=== PATIENT | female | born 1970 | race Caucasian/White ===

== ENCOUNTER → 2018-07-10 | Outpatient (CLI) | payer BC ==
[2018-07-10 14:44] LABS: EOS # 0.1 (0.04-0.40); EOS % 0.9 % (1.0-5.0); HEMATOCRIT 35.6 % (37.0-47.0); HEMOGLOBIN 10.4 g/dL (12.5-16.0); LYMPH# 1.6 (1.50-4.00); MEAN CELL VOLUME 80 fl (78-100); MEAN CORPUSCULAR HEMOGLOBIN 23 pg (27-31); MEAN CORPUSCULAR HGB CONC 29 g/dL (33-37); MEAN PLATELET VOLUME 9.1 fl (7.4-10.4); MONO # 0.4 (0.20-0.80); NEU # 4.4 (1.40-6.50); PLATELET COUNT 497 K/mm3 (130-400); RED BLOOD COUNT 4.44 M/mm3 (4.10-5.30); RED CELL DISTRIBUTION WIDTH 15.9 % (11.5-14.5); WHITE BLOOD COUNT 6.5 K/mm3 (4.8-10.8)
[2018-07-10 14:52] LABS: ALBUMIN 3.9 g/dL (3.5-5.0); POTASSIUM 3.8 mmol/L (3.6-5.0); TOTAL BILIRUBIN 0.2 mg/dL (0.2-1.3); TOTAL PROTEIN 7.6 g/dL (6.3-8.2)
== END ==
LOC: LAB 14:24
DX: C71.9 Malignant neoplasm of brain, unspecified (principal)

== ENCOUNTER → 2018-07-22 | Outpatient (CLI) | payer BC ==
[2018-07-22 18:08] LABS: EOS # 0.2 (0.04-0.40); EOS % 2.5 % (1.0-5.0); HEMATOCRIT 34.7 % (37.0-47.0); HEMOGLOBIN 10.3 g/dL (12.5-16.0); LYMPH# 1.6 (1.50-4.00); MEAN CELL VOLUME 80 fl (78-100); MEAN CORPUSCULAR HGB CONC 30 g/dL (33-37); MEAN PLATELET VOLUME 9.8 fl (7.4-10.4); MONO # 0.6 (0.20-0.80); NEU # 5.3 (1.40-6.50); RED BLOOD COUNT 4.34 M/mm3 (4.10-5.30); RED CELL DISTRIBUTION WIDTH 15.9 % (11.5-14.5); WHITE BLOOD COUNT 7.7 K/mm3 (4.8-10.8)
[2018-07-22 18:09] LABS: MEAN CORPUSCULAR HEMOGLOBIN 24 pg (27-31); PLATELET COUNT 516 K/mm3 (130-400)
[2018-07-22 18:15] LABS: ALBUMIN 3.9 g/dL (3.5-5.0); CALCIUM 9.3 mg/dL (8.4-10.2); TOTAL BILIRUBIN 0.3 mg/dL (0.2-1.3); TOTAL PROTEIN 7.6 g/dL (6.3-8.2)
== END ==
LOC: LAB 14:47
PROVIDERS: Internal Medicine
DX: C71.9 Malignant neoplasm of brain, unspecified (principal)

== ENCOUNTER → 2018-08-05 | Outpatient (CLI) | payer BC ==
[2018-08-05 13:11] LABS: EOS # 0.2 (0.04-0.40); EOS % 3.3 % (1.0-5.0); HEMATOCRIT 37.5 % (37.0-47.0); LYMPH# 1.4 (1.50-4.00); MEAN CELL VOLUME 78 fl (78-100); MONO # 0.4 (0.20-0.80); NEU # 3.2 (1.40-6.50); PLATELET COUNT 455 K/mm3 (130-400); RED BLOOD COUNT 4.79 M/mm3 (4.10-5.30); WHITE BLOOD COUNT 5.2 K/mm3 (4.8-10.8)
[2018-08-05 13:13] LABS: MEAN CORPUSCULAR HEMOGLOBIN 23 pg (27-31); MEAN CORPUSCULAR HGB CONC 29 g/dL (33-37)
[2018-08-05 13:26] LABS: ALBUMIN 4.1 g/dL (3.5-5.0); CALCIUM 8.8 mg/dL (8.4-10.2); POTASSIUM 4.1 mmol/L (3.6-5.0); TOTAL BILIRUBIN 0.3 mg/dL (0.2-1.3); TOTAL PROTEIN 7.9 g/dL (6.3-8.2)
== END ==
LOC: LAB 12:55
PROVIDERS: Internal Medicine
DX: C71.9 Malignant neoplasm of brain, unspecified (principal)

== ENCOUNTER → 2018-08-16 | Outpatient (CLI) | payer BC ==
[2018-08-16 17:15] LABS: ALBUMIN 3.9 g/dL (3.5-5.0); CALCIUM 9.2 mg/dL (8.4-10.2); TOTAL BILIRUBIN 0.3 mg/dL (0.2-1.3); TOTAL PROTEIN 7.3 g/dL (6.3-8.2)
[2018-08-16 17:43] LABS: EOS # 0.2 (0.04-0.40); EOS % 2.7 % (1.0-5.0); HEMATOCRIT 38.7 % (37.0-47.0); HEMOGLOBIN 11.4 g/dL (12.5-16.0); LYMPH# 1.2 (1.50-4.00); MEAN CELL VOLUME 78 fl (78-100); MEAN CORPUSCULAR HGB CONC 30 g/dL (33-37); MEAN PLATELET VOLUME 10.5 fl (7.4-10.4); MONO # 0.4 (0.20-0.80); NEU # 4.2 (1.40-6.50); PLATELET COUNT 374 K/mm3 (130-400); RED BLOOD COUNT 4.97 M/mm3 (4.10-5.30); RED CELL DISTRIBUTION WIDTH 16.5 % (11.5-14.5)
[2018-08-16 18:09] LABS: MEAN CORPUSCULAR HEMOGLOBIN 23 pg (27-31)
== END ==
LOC: LAB 13:20
PROVIDERS: Internal Medicine
DX: C71.9 Malignant neoplasm of brain, unspecified (principal)

== ENCOUNTER 2018-08-17 14:30 | Outpatient (RCR) | payer BC | END 2018-08-17 15:00 | LOC: SPEECH | DX: C71.9 Malignant neoplasm of brain, unspecified (principal) ==

== ENCOUNTER → 2018-08-30 | Outpatient (CLI) | payer BC ==
[2018-08-30 20:11] LABS: URINE COLOR YELLOW
[2018-08-30 20:12] LABS: URINE APPEARANCE HAZY; URINE BILIRUBIN NEGATIVE (NEGATIVE); URINE BLOOD TRACE (NEGATIVE); URINE GLUCOSE NEGATIVE (NEGATIVE); URINE KETONE NEGATIVE (NEGATIVE); URINE LEUKOCYTE ESTERASE NEGATIVE (NEGATIVE); URINE NITRATE NEGATIVE (NEGATIVE); URINE PROTEIN(semi-quant) TRACE mg/dL (NEGATIVE); URINE UROBILINOGEN NORMAL (NORMAL)
== END ==
LOC: LAB 17:16
PROVIDERS: Internal Medicine
DX: N30.00 Acute cystitis without hematuria (principal)

== ENCOUNTER → 2018-09-14 | Outpatient (CLI) | payer BC ==
[2018-09-14 12:08] LABS: URINE APPEARANCE HAZY; URINE COLOR YELLOW
[2018-09-14 12:09] LABS: PH-URINE 6.5 (5.0 - 8.0); URINE BILIRUBIN NEGATIVE (NEGATIVE); URINE BLOOD 50 ery/uL (NEGATIVE); URINE GLUCOSE NEGATIVE (NEGATIVE); URINE KETONE 1+ (NEGATIVE); URINE LEUKOCYTE ESTERASE TRACE (NEGATIVE); URINE NITRATE NEGATIVE (NEGATIVE); URINE PROTEIN(semi-quant) NEGATIVE (NEGATIVE); URINE UROBILINOGEN NORMAL (NORMAL)
[2018-09-14 12:10] LABS: URINE MUCUS PRESENT (NOT PRESENT)
== END ==
LOC: LAB 10:05
PROVIDERS: Internal Medicine
DX: D64.9 Anemia, unspecified (principal); N30.00 Acute cystitis without hematuria

== ENCOUNTER → 2018-09-15 | Outpatient (CLI) | payer BC ==
[2018-09-15 13:10] LABS: URINE COLOR YELLOW
[2018-09-15 13:11] LABS: PH-URINE 6.5 (5.0 - 8.0); URINE APPEARANCE HAZY; URINE BILIRUBIN NEGATIVE (NEGATIVE); URINE BLOOD TRACE (NEGATIVE); URINE GLUCOSE NEGATIVE (NEGATIVE); URINE KETONE NEGATIVE (NEGATIVE); URINE LEUKOCYTE ESTERASE TRACE (NEGATIVE); URINE NITRATE NEGATIVE (NEGATIVE); URINE PROTEIN(semi-quant) TRACE mg/dL (NEGATIVE); URINE UROBILINOGEN NORMAL (NORMAL)
== END ==
LOC: LAB 09:45
PROVIDERS: Internal Medicine
DX: D64.9 Anemia, unspecified (principal); N30.00 Acute cystitis without hematuria

== ENCOUNTER → 2018-09-17 | Outpatient (CLI) | payer BC ==
[2018-09-17 08:53] LABS: EOS # 0.1 (0.04-0.40); EOS % 1.9 % (1.0-5.0); HEMATOCRIT 37.1 % (37.0-47.0); HEMOGLOBIN 10.8 g/dL (12.5-16.0); LYMPH# 1.1 (1.50-4.00); MEAN CELL VOLUME 79 fl (78-100); MEAN PLATELET VOLUME 9.1 fl (7.4-10.4); MONO # 0.4 (0.20-0.80); NEU # 4.1 (1.40-6.50); PLATELET COUNT 378 K/mm3 (130-400); RED CELL DISTRIBUTION WIDTH 16.9 % (11.5-14.5); WHITE BLOOD COUNT 5.7 K/mm3 (4.8-10.8)
[2018-09-17 09:11] LABS: ALBUMIN 3.8 g/dL (3.5-5.0); CALCIUM 9.2 mg/dL (8.4-10.2); TOTAL BILIRUBIN 0.4 mg/dL (0.2-1.3); TOTAL PROTEIN 7.6 g/dL (6.3-8.2)
[2018-09-17 09:17] LABS: MEAN CORPUSCULAR HEMOGLOBIN 23 pg (27-31); MEAN CORPUSCULAR HGB CONC 29 g/dL (33-37)
== END ==
LOC: LAB 08:27
PROVIDERS: Internal Medicine
DX: C71.9 Malignant neoplasm of brain, unspecified (principal)

== ENCOUNTER → 2018-09-29 | Outpatient (CLI) | payer BC ==
[2018-09-29 17:13] LABS: EOS # 0.1 (0.04-0.40); HEMATOCRIT 38.1 % (37.0-47.0); HEMOGLOBIN 11.1 g/dL (12.5-16.0); LYMPH# 1.1 (1.50-4.00); MEAN CELL VOLUME 79 fl (78-100); MEAN PLATELET VOLUME 8.9 fl (7.4-10.4); MONO # 0.4 (0.20-0.80); NEU # 4.5 (1.40-6.50); PLATELET COUNT 422 K/mm3 (130-400); RED BLOOD COUNT 4.84 M/mm3 (4.10-5.30); WHITE BLOOD COUNT 6.1 K/mm3 (4.8-10.8)
[2018-09-29 17:20] LABS: MEAN CORPUSCULAR HEMOGLOBIN 23 pg (27-31); MEAN CORPUSCULAR HGB CONC 29 g/dL (33-37)
[2018-09-29 17:26] LABS: CALCIUM 9.3 mg/dL (8.4-10.2); POTASSIUM 3.9 mmol/L (3.6-5.0); TOTAL BILIRUBIN 0.2 mg/dL (0.2-1.3); TOTAL PROTEIN 8.1 g/dL (6.3-8.2)
== END ==
LOC: LAB 16:54
PROVIDERS: Internal Medicine
DX: C71.9 Malignant neoplasm of brain, unspecified (principal)

== ENCOUNTER → 2018-10-13 | Outpatient (CLI) | payer BC ==
[2018-10-13 10:34] LABS: EOS # 0.1 (0.04-0.40); EOS % 2.2 % (1.0-5.0); HEMATOCRIT 38.6 % (37.0-47.0); HEMOGLOBIN 11.3 g/dL (12.5-16.0); LYMPH# 0.8 (1.50-4.00); MEAN CELL VOLUME 78 fl (78-100); MEAN CORPUSCULAR HEMOGLOBIN 23 pg (27-31); MEAN CORPUSCULAR HGB CONC 29 g/dL (33-37); MONO # 0.3 (0.20-0.80); NEU # 3.9 (1.40-6.50); PLATELET COUNT 432 K/mm3 (130-400); RED BLOOD COUNT 4.96 M/mm3 (4.10-5.30); RED CELL DISTRIBUTION WIDTH 17.6 % (11.5-14.5); WHITE BLOOD COUNT 5.1 K/mm3 (4.8-10.8)
[2018-10-13 10:44] LABS: CALCIUM 8.8 mg/dL (8.4-10.2); POTASSIUM 3.8 mmol/L (3.6-5.0); TOTAL BILIRUBIN 0.4 mg/dL (0.2-1.3); TOTAL PROTEIN 7.9 g/dL (6.3-8.2)
== END ==
LOC: LAB 10:15
PROVIDERS: Internal Medicine
DX: C71.9 Malignant neoplasm of brain, unspecified (principal)

== ENCOUNTER → 2018-10-26 | Outpatient (CLI) | payer BC ==
[2018-10-26 12:05] LABS: BASO # 0.1 (0.02-0.10); EOS # 0.2 (0.04-0.40); EOS % 2.6 % (1.0-5.0); HEMATOCRIT 41.6 % (37.0-47.0); HEMOGLOBIN 12.8 g/dL (12.5-16.0); LYMPH# 1.3 (1.50-4.00); MEAN CELL VOLUME 85 fl (78-100); MEAN CORPUSCULAR HEMOGLOBIN 26 pg (27-31); MEAN CORPUSCULAR HGB CONC 31 g/dL (33-37); MEAN PLATELET VOLUME 9.5 fl (7.4-10.4); MONO # 0.6 (0.20-0.80); NEU # 4.4 (1.40-6.50); PLATELET COUNT 378 K/mm3 (130-400); RED BLOOD COUNT 4.92 M/mm3 (4.10-5.30); RED CELL DISTRIBUTION WIDTH 17.1 % (11.5-14.5); WHITE BLOOD COUNT 6.5 K/mm3 (4.8-10.8)
[2018-10-26 12:19] LABS: ALBUMIN 4.4 g/dL (3.5-5.0); POTASSIUM 4.1 mmol/L (3.6-5.0); TOTAL BILIRUBIN 0.4 mg/dL (0.2-1.3); TOTAL PROTEIN 8.3 g/dL (6.3-8.2)
== END ==
LOC: LAB 11:49
PROVIDERS: Internal Medicine
DX: C71.9 Malignant neoplasm of brain, unspecified (principal)

== ENCOUNTER → 2018-10-29 | Outpatient (CLI) | payer BC ==
[2018-10-29 11:48] LABS: URINE APPEARANCE CLOUDY; URINE BILIRUBIN NEGATIVE (NEGATIVE); URINE BLOOD 50 ery/uL (NEGATIVE); URINE COLOR YELLOW; URINE GLUCOSE NEGATIVE (NEGATIVE); URINE KETONE NEGATIVE (NEGATIVE); URINE LEUKOCYTE ESTERASE 2+ (NEGATIVE); URINE MUCUS PRESENT (NOT PRESENT); URINE NITRATE NEGATIVE (NEGATIVE); URINE PROTEIN(semi-quant) TRACE mg/dL (NEGATIVE); URINE UROBILINOGEN NORMAL (NORMAL); URINE WBC >50 /hpf (0-3)
== END ==
LOC: LAB 11:18
PROVIDERS: Family Medicine
DX: N30.00 Acute cystitis without hematuria (principal)

== ENCOUNTER → 2018-12-04 | Outpatient (CLI) | payer BC ==
[2018-12-02 10:41] VITALS: BP 122/49
[~2018-12-04] MED LIST: DIVALPROEX SOD250 MG PO; ESCITALOPRAM20 MG PO; FUROSEMIDE20 MG PO; LEVOTHYROXIN0.025 MG PO; ONDANSETRON HYDR4 MG PO; VYVANSE70 MG PO; ZONISAMIDE100 MG PO
[2018-12-04 09:29] LABS: EOS # 0.1 (0.04-0.40); EOS % 1.9 % (1.0-5.0); HEMATOCRIT 39.5 % (37.0-47.0); HEMOGLOBIN 11.9 g/dL (12.5-16.0); MEAN CELL VOLUME 81 fl (78-100); MEAN CORPUSCULAR HEMOGLOBIN 25 pg (27-31); MEAN CORPUSCULAR HGB CONC 30 g/dL (33-37); MEAN PLATELET VOLUME 8.8 fl (7.4-10.4); MONO # 0.3 (0.20-0.80); PLATELET COUNT 348 K/mm3 (130-400); RED BLOOD COUNT 4.85 M/mm3 (4.10-5.30); WHITE BLOOD COUNT 5.1 K/mm3 (4.8-10.8)
[2018-12-04 09:44] LABS: ALBUMIN 3.4 g/dL (3.5-5.0); CALCIUM 9.3 mg/dL (8.3-10.5); POTASSIUM 4.1 mmol/L (3.5-5.1); TOTAL BILIRUBIN 0.3 mg/dL (0.2-1.2); TOTAL PROTEIN 7.3 g/dL (6.4-8.3)
[2018-12-04 10:12] LABS: LYMPH# 0.6 (1.50-4.00); RED CELL DISTRIBUTION WIDTH 18.4 % (11.5-14.5)
== END ==
LOC: LAB 09:04
PROVIDERS: Internal Medicine
DX: C71.9 Malignant neoplasm of brain, unspecified (principal)

== ENCOUNTER 2018-12-10 15:09 | Outpatient (RCR) | payer BC ==
[2018-11-27 08:57] VITALS: BP 139/89
[2018-11-27 10:45] VITALS: BP 148/67
[2018-11-29 10:50] VITALS: BP 135/78
[2018-11-29 15:00] VITALS: BP 135/78
[2018-12-02 09:39] VITALS: BP 124/83
[2018-12-02 10:41] VITALS: BP 122/49
[2018-12-04 09:35] VITALS: BP 116/61
[2018-12-04 10:45] VITALS: BP 129/81
[~2018-12-10] VITALS: Ht 160 cm; Wt 117.3 kg
[2018-12-10 15:17] VITALS: BP 118/78
[2018-12-10 17:02] VITALS: BP 116/74
== END 2018-12-10 17:14 | disposition home or self-care (01) ==
LOC: AMSURD 15:09
DX: E61.1 Iron deficiency (principal)
CPT/HCPCS: J2916

== ENCOUNTER → 2019-01-14 | Outpatient (CLI) | payer BC ==
[2019-01-14 13:55] LABS: HEMATOCRIT 40.6 % (37.0-47.0); HEMOGLOBIN 12.5 g/dL (12.5-16.0); MEAN CELL VOLUME 84 fl (78-100); MEAN CORPUSCULAR HEMOGLOBIN 26 pg (27-31); MEAN CORPUSCULAR HGB CONC 31 g/dL (33-37); MEAN PLATELET VOLUME 8.9 fl (7.4-10.4); PLATELET COUNT 312 K/mm3 (130-400); RED BLOOD COUNT 4.82 M/mm3 (4.10-5.30); RED CELL DISTRIBUTION WIDTH 17.6 % (11.5-14.5); WHITE BLOOD COUNT 4.7 K/mm3 (4.8-10.8)
[2019-01-14 14:04] LABS: BAND 1 % (0-10); LYMPHOCYTE 9 % (20-51); MONOCYTE 8 % (3-10); NEUTROPHILS 77 % (42-75); OVALOCYTES 1+
[2019-01-14 14:07] LABS: ALBUMIN 3.7 g/dL (3.5-5.0); POTASSIUM 4.2 mmol/L (3.5-5.1)
[2019-01-14 14:08] LABS: CALCIUM 9.3 mg/dL (8.3-10.5)
[2019-01-14 14:10] LABS: TOTAL PROTEIN 7.7 g/dL (6.4-8.3)
[2019-01-14 14:11] LABS: TOTAL BILIRUBIN 0.3 mg/dL (0.2-1.2)
== END ==
LOC: LAB 13:42
PROVIDERS: Internal Medicine
DX: C71.9 Malignant neoplasm of brain, unspecified (principal)

== ENCOUNTER → 2019-02-15 | Outpatient (CLI) | payer BC ==
[2019-02-15 09:24] LABS: ALBUMIN 3.7 g/dL (3.5-5.0)
[2019-02-15 09:25] LABS: CALCIUM 8.9 mg/dL (8.3-10.5)
[2019-02-15 09:27] LABS: TOTAL PROTEIN 8.3 g/dL (6.4-8.3)
[2019-02-15 09:28] LABS: TOTAL BILIRUBIN 0.3 mg/dL (0.2-1.2)
[2019-02-15 09:50] LABS: EOS # 0.2 (0.04-0.40); EOS % 2.9 % (1.0-5.0); HEMATOCRIT 38.6 % (37.0-47.0); HEMOGLOBIN 12.2 g/dL (12.5-16.0); MEAN CELL VOLUME 86 fl (78-100); MEAN CORPUSCULAR HEMOGLOBIN 27 pg (27-31); MEAN CORPUSCULAR HGB CONC 32 g/dL (33-37); MEAN PLATELET VOLUME 8.9 fl (7.4-10.4); MONO # 0.4 (0.20-0.80); PLATELET COUNT 321 K/mm3 (130-400); RED BLOOD COUNT 4.49 M/mm3 (4.10-5.30); WHITE BLOOD COUNT 5.2 K/mm3 (4.8-10.8)
[2019-02-15 09:52] LABS: LYMPH# 0.6 (1.50-4.00)
== END ==
LOC: LAB 08:48
PROVIDERS: Internal Medicine
DX: K90.9 Intestinal malabsorption, unspecified (principal); E61.1 Iron deficiency; E03.9 Hypothyroidism, unspecified; C71.9 Malignant neoplasm of brain, unspecified

== ENCOUNTER 2019-02-24 16:09 | Outpatient (RCR) | payer BC ==
[~2019-02-24] VITALS: Ht 160 cm; Wt 117.3 kg
[2019-02-24 16:45] VITALS: BP 124/76
[2019-02-24 17:55] VITALS: BP 138/69
== END 2019-02-24 17:00 | disposition home or self-care (01) ==
LOC: AMSURD 16:09
DX: E61.1 Iron deficiency (principal)
CPT/HCPCS: J2916

== ENCOUNTER → 2019-03-14 | Outpatient (CLI) | payer BC ==
[2019-02-24 17:55] VITALS: BP 138/69
[2019-03-14 14:00] LABS: HEMOGLOBIN 12.7 g/dL (12.5-16.0); MEAN CELL VOLUME 87 fl (78-100); MEAN CORPUSCULAR HEMOGLOBIN 28 pg (27-31); MEAN CORPUSCULAR HGB CONC 32 g/dL (33-37); MEAN PLATELET VOLUME 8.6 fl (7.4-10.4); PLATELET COUNT 314 K/mm3 (130-400); RED CELL DISTRIBUTION WIDTH 15.7 % (11.5-14.5)
[2019-03-14 14:14] LABS: ALBUMIN 3.7 g/dL (3.5-5.0)
[2019-03-14 14:16] LABS: CALCIUM 9.1 mg/dL (8.3-10.5)
[2019-03-14 14:17] LABS: TOTAL PROTEIN 7.8 g/dL (6.4-8.3)
[2019-03-14 14:19] LABS: TOTAL BILIRUBIN 0.3 mg/dL (0.2-1.2)
[2019-03-14 14:22] LABS: BAND 1 % (0-10); NEUTROPHILS 80 % (42-75)
[2019-03-14 14:23] LABS: LYMPHOCYTE 10 % (20-51); MONOCYTE 6 % (3-10)
== END ==
LOC: LAB 13:44
PROVIDERS: Internal Medicine Medical Oncology
DX: C71.9 Malignant neoplasm of brain, unspecified (principal)

== ENCOUNTER → 2019-04-13 | Outpatient (CLI) | payer BC ==
[2019-03-23 12:32] VITALS: BP 128/74
[2019-04-13 12:14] LABS: HEMOGLOBIN 12.8 g/dL (12.5-16.0); MEAN CELL VOLUME 88 fl (78-100); MEAN CORPUSCULAR HEMOGLOBIN 28 pg (27-31); MEAN CORPUSCULAR HGB CONC 31 g/dL (33-37); MEAN PLATELET VOLUME 8.6 fl (7.4-10.4); PLATELET COUNT 295 K/mm3 (130-400); RED BLOOD COUNT 4.64 M/mm3 (4.10-5.30); RED CELL DISTRIBUTION WIDTH 14.9 % (11.5-14.5); WHITE BLOOD COUNT 5.3 K/mm3 (4.8-10.8)
[2019-04-13 12:22] LABS: ALBUMIN 3.8 g/dL (3.5-5.0); POTASSIUM 3.8 mmol/L (3.5-5.1)
[2019-04-13 12:23] LABS: CALCIUM 9.4 mg/dL (8.3-10.5)
[2019-04-13 12:24] LABS: TOTAL PROTEIN 8.3 g/dL (6.4-8.3)
[2019-04-13 12:26] LABS: TOTAL BILIRUBIN 0.2 mg/dL (0.2-1.2)
[2019-04-13 12:35] LABS: BAND 1 % (0-10); LYMPHOCYTE 4 % (20-51); MONOCYTE 6 % (3-10); NEUTROPHILS 87 % (42-75)
== END ==
LOC: LAB 12:02
PROVIDERS: Internal Medicine
DX: C71.9 Malignant neoplasm of brain, unspecified (principal)

== ENCOUNTER 2019-04-19 10:54 | Outpatient (RCR) | payer BC ==
[2019-03-23 11:33] VITALS: BP 128/77
[2019-03-23 12:32] VITALS: BP 128/74
[~2019-04-19] VITALS: Ht 160 cm; Wt 117.3 kg
[2019-04-19 11:48] VITALS: BP 131/80
[2019-04-19 11:50] VITALS: BP 130/80
== END 2019-04-19 12:00 | disposition still patient (30) ==
LOC: AMSURD 10:54
DX: E61.1 Iron deficiency (principal)
CPT/HCPCS: J2916

== ENCOUNTER → 2019-06-14 | Outpatient (CLI) | payer MEDICARE ==
[2019-05-24 15:56] VITALS: BP 139/84
[2019-06-14 13:20] LABS: ALBUMIN 3.8 g/dL (3.5-5.0); POTASSIUM 3.5 mmol/L (3.5-5.1)
[2019-06-14 13:21] LABS: CALCIUM 9.1 mg/dL (8.3-10.5)
[2019-06-14 13:22] LABS: HEMATOCRIT 40.7 % (37.0-47.0); HEMOGLOBIN 12.8 g/dL (12.5-16.0); MEAN CELL VOLUME 91 fl (78-100); MEAN CORPUSCULAR HEMOGLOBIN 29 pg (27-31); MEAN CORPUSCULAR HGB CONC 31 g/dL (33-37); MEAN PLATELET VOLUME 8.3 fl (7.4-10.4); PLATELET COUNT 313 K/mm3 (130-400); RED BLOOD COUNT 4.47 M/mm3 (4.10-5.30); RED CELL DISTRIBUTION WIDTH 15.3 % (11.5-14.5); WHITE BLOOD COUNT 5.4 K/mm3 (4.8-10.8)
[2019-06-14 13:23] LABS: TOTAL PROTEIN 8.1 g/dL (6.4-8.3)
[2019-06-14 13:24] LABS: TOTAL BILIRUBIN 0.2 mg/dL (0.2-1.2)
[2019-06-14 13:40] LABS: LYMPHOCYTE 12 % (20-51); MONOCYTE 3 % (3-10); NEUTROPHILS 83 % (42-75)
== END ==
LOC: LAB 12:59
PROVIDERS: Internal Medicine Medical Oncology
DX: C71.9 Malignant neoplasm of brain, unspecified (principal)

== ENCOUNTER 2019-07-14 14:04 | Outpatient (RCR) | payer MEDICARE ==
[2019-05-24 14:46] VITALS: BP 147/91
[2019-05-24 15:56] VITALS: BP 139/84
[~2019-07-14] VITALS: Ht 160 cm; Wt 117.3 kg
[2019-07-14 14:27] VITALS: BP 125/83
[2019-07-14 15:15] VITALS: BP 140/84
== END 2019-08-22 | disposition still patient (30) ==
LOC: AMSURD
DX: E61.1 Iron deficiency (principal)
CPT/HCPCS: J2916

== ENCOUNTER → 2019-08-25 | Outpatient (CLI) | payer MEDICARE ==
[2019-08-25 09:26] LABS: HEMATOCRIT 44.3 % (37.0-47.0); MEAN CELL VOLUME 93 fl (78-100); MEAN CORPUSCULAR HEMOGLOBIN 29 pg (27-31); MEAN CORPUSCULAR HGB CONC 32 g/dL (33-37); MEAN PLATELET VOLUME 8.9 fl (7.4-10.4); PLATELET COUNT 131 K/mm3 (130-400); RED BLOOD COUNT 4.79 M/mm3 (4.10-5.30); RED CELL DISTRIBUTION WIDTH 14.6 % (11.5-14.5); WHITE BLOOD COUNT 3.7 K/mm3 (4.8-10.8)
[2019-08-25 09:37] LABS: ALBUMIN 3.5 g/dL (3.5-5.0); POTASSIUM 4.4 mmol/L (3.5-5.1)
[2019-08-25 09:38] LABS: CALCIUM 9.3 mg/dL (8.3-10.5)
[2019-08-25 09:39] LABS: TOTAL PROTEIN 7.5 g/dL (6.4-8.3)
[2019-08-25 09:41] LABS: TOTAL BILIRUBIN 0.3 mg/dL (0.2-1.2)
[2019-08-25 09:45] LABS: BAND 1 % (0-10); LYMPHOCYTE 12 % (20-51); MONOCYTE 13 % (3-10); NEUTROPHILS 70 % (42-75)
[2019-08-25 09:46] LABS: OVALOCYTES 1+
[2019-08-25 10:11] LABS: URINE APPEARANCE CLEAR; URINE BILIRUBIN NEGATIVE (NEGATIVE); URINE BLOOD NEGATIVE (NEGATIVE); URINE COLOR YELLOW; URINE GLUCOSE NEGATIVE (NEGATIVE); URINE KETONE NEGATIVE (NEGATIVE); URINE LEUKOCYTE ESTERASE NEGATIVE (NEGATIVE); URINE NITRATE NEGATIVE (NEGATIVE); URINE PROTEIN(semi-quant) NEGATIVE (NEGATIVE); URINE UROBILINOGEN NORMAL (NORMAL)
== END ==
LOC: LAB 09:14
PROVIDERS: Internal Medicine Medical Oncology
DX: C71.1 Malignant neoplasm of frontal lobe (principal)

== ENCOUNTER → 2019-09-08 | Outpatient (CLI) | payer MEDICARE ==
[2019-08-25 11:18] VITALS: BP 121/62
[2019-09-08 14:17] LABS: EOS # 0.2 (0.04-0.40); HEMOGLOBIN 14.3 g/dL (12.5-16.0); MEAN CELL VOLUME 92 fl (78-100); MEAN CORPUSCULAR HEMOGLOBIN 29 pg (27-31); MEAN CORPUSCULAR HGB CONC 32 g/dL (33-37); MONO # 0.4 (0.20-0.80); NEU # 3.3 (1.40-6.50); PLATELET COUNT 180 K/mm3 (130-400); RED BLOOD COUNT 4.89 M/mm3 (4.10-5.30); RED CELL DISTRIBUTION WIDTH 15.1 % (11.5-14.5); WHITE BLOOD COUNT 4.7 K/mm3 (4.8-10.8)
[2019-09-08 14:20] LABS: ALBUMIN 3.4 g/dL (3.5-5.0); POTASSIUM 4.4 mmol/L (3.5-5.1)
[2019-09-08 14:22] LABS: CALCIUM 9.4 mg/dL (8.3-10.5); LYMPH# 0.7 (1.50-4.00)
[2019-09-08 14:23] LABS: TOTAL PROTEIN 7.8 g/dL (6.4-8.3)
[2019-09-08 14:25] LABS: TOTAL BILIRUBIN 0.3 mg/dL (0.2-1.2)
[2019-09-08 14:41] LABS: URINE APPEARANCE HAZY; URINE BILIRUBIN NEGATIVE (NEGATIVE); URINE BLOOD NEGATIVE (NEGATIVE); URINE COLOR YELLOW; URINE GLUCOSE NEGATIVE (NEGATIVE); URINE KETONE NEGATIVE (NEGATIVE); URINE NITRATE NEGATIVE (NEGATIVE); URINE PROTEIN(semi-quant) NEGATIVE (NEGATIVE); URINE UROBILINOGEN NORMAL (NORMAL)
[2019-09-08 14:42] LABS: URINE LEUKOCYTE ESTERASE NEGATIVE (NEGATIVE)
== END ==
LOC: LAB 13:55
PROVIDERS: Internal Medicine Medical Oncology
DX: C71.1 Malignant neoplasm of frontal lobe (principal)

== ENCOUNTER → 2019-10-04 | Outpatient (CLI) | payer MEDICARE ==
[2019-09-23 15:10] VITALS: BP 124/80
[2019-10-04 10:54] LABS: ALBUMIN 3.6 g/dL (3.5-5.0); POTASSIUM 4.5 mmol/L (3.5-5.1)
[2019-10-04 10:56] LABS: CALCIUM 9.5 mg/dL (8.3-10.5)
[2019-10-04 10:57] LABS: TOTAL PROTEIN 7.8 g/dL (6.4-8.3)
[2019-10-04 10:59] LABS: TOTAL BILIRUBIN 0.4 mg/dL (0.2-1.2)
[2019-10-04 11:00] LABS: EOS # 0.1 (0.04-0.40); EOS % 1.7 % (1.0-5.0); HEMATOCRIT 43.7 % (37.0-47.0); LYMPH# 0.8 (1.50-4.00); MEAN CELL VOLUME 93 fl (78-100); MEAN CORPUSCULAR HEMOGLOBIN 30 pg (27-31); MEAN CORPUSCULAR HGB CONC 32 g/dL (33-37); MONO # 0.5 (0.20-0.80); NEU # 3.4 (1.40-6.50); PLATELET COUNT 166 K/mm3 (130-400); RED BLOOD COUNT 4.68 M/mm3 (4.10-5.30); RED CELL DISTRIBUTION WIDTH 16.5 % (11.5-14.5); WHITE BLOOD COUNT 4.8 K/mm3 (4.8-10.8)
[2019-10-04 14:09] LABS: URINE APPEARANCE CLOUDY; URINE BILIRUBIN NEGATIVE (NEGATIVE); URINE BLOOD TRACE (NEGATIVE); URINE COLOR YELLOW; URINE GLUCOSE NEGATIVE (NEGATIVE); URINE KETONE NEGATIVE (NEGATIVE); URINE LEUKOCYTE ESTERASE TRACE (NEGATIVE); URINE NITRATE NEGATIVE (NEGATIVE); URINE PROTEIN(semi-quant) NEGATIVE (NEGATIVE); URINE UROBILINOGEN NORMAL (NORMAL)
[2019-10-04 14:10] LABS: URINE MUCUS PRESENT (NOT PRESENT)
== END ==
LOC: LAB 10:19
PROVIDERS: Internal Medicine Medical Oncology
DX: C71.1 Malignant neoplasm of frontal lobe (principal)

== ENCOUNTER 2019-10-21 14:28 | Outpatient (RCR) | payer MEDICARE ==
[2019-08-25 10:10] VITALS: BP 120/77
[2019-08-25 11:18] VITALS: BP 121/62
--- NOTE | 2019-09-23 13:58 | NUR ---
This RN called Dr. Ritter's office and spoke with Alma, Dr. Ritter's nurse to clarify whether the pt's port-a-cath which was placed today is to be deaccessed after today's nulecit transfusion. Also requested that they fax us lab orders if he wishes to have labs drawn at this time. Alma states that she will speak with Dr. Ritter and get back to us.
[2019-09-23 14:06] VITALS: BP 130/68
--- NOTE | 2019-09-23 14:30 | NUR ---
PT ARRIVES WITH NEW PORT ACCESSED, PORT RECENTLY PLACED EARLIER TODAY IN [place], ORDERS FROM TO DEACCESS PORT UPON COMPLETION OF IV INFUSION TODAY
[2019-09-23 15:10] VITALS: BP 124/80
[~2019-10-21] VITALS: Ht 160 cm; Wt 117.3 kg
[2019-10-21 14:50] VITALS: BP 120/90
[2019-10-21 16:19] VITALS: BP 111/76
== END 2019-11-23 | disposition home or self-care (01) ==
LOC: AMSURD
DX: E61.1 Iron deficiency (principal)
CPT/HCPCS: J1644; J2916

== ENCOUNTER → 2019-10-21 | Outpatient (CLI) | payer MEDICARE ==
[2019-09-23 15:10] VITALS: BP 124/80
[2019-10-21 15:05] LABS: ALBUMIN 3.5 g/dL (3.5-5.0)
[2019-10-21 15:07] LABS: CALCIUM 8.9 mg/dL (8.3-10.5)
[2019-10-21 15:08] LABS: TOTAL PROTEIN 7.4 g/dL (6.4-8.3)
[2019-10-21 15:10] LABS: EOS # 0.1 (0.04-0.40); EOS % 1.4 % (1.0-5.0); HEMATOCRIT 42.4 % (37.0-47.0); HEMOGLOBIN 13.7 g/dL (12.5-16.0); LYMPH# 0.9 (1.50-4.00); MEAN CELL VOLUME 94 fl (78-100); MEAN CORPUSCULAR HEMOGLOBIN 31 pg (27-31); MEAN CORPUSCULAR HGB CONC 32 g/dL (33-37); MEAN PLATELET VOLUME 9.3 fl (7.4-10.4); MONO # 0.4 (0.20-0.80); PLATELET COUNT 143 K/mm3 (130-400); RED BLOOD COUNT 4.49 M/mm3 (4.10-5.30); RED CELL DISTRIBUTION WIDTH 16.8 % (11.5-14.5); TOTAL BILIRUBIN 0.5 mg/dL (0.2-1.2); WHITE BLOOD COUNT 3.5 K/mm3 (4.8-10.8)
== END ==
LOC: LAB 14:40
PROVIDERS: Internal Medicine
DX: C71.1 Malignant neoplasm of frontal lobe (principal)

== ENCOUNTER → 2019-10-22 | Outpatient (CLI) | payer MEDICARE ==
[2019-10-21 16:19] VITALS: BP 111/76
[2019-10-22 11:42] LABS: URINE APPEARANCE CLOUDY; URINE BILIRUBIN NEGATIVE (NEGATIVE); URINE BLOOD TRACE (NEGATIVE); URINE COLOR BROWN; URINE GLUCOSE NEGATIVE (NEGATIVE); URINE KETONE SMALL (NEGATIVE); URINE NITRATE NEGATIVE (NEGATIVE); URINE PROTEIN(semi-quant) TRACE mg/dL (NEGATIVE); URINE UROBILINOGEN NORMAL (NORMAL)
[2019-10-22 11:43] LABS: URINE LEUKOCYTE ESTERASE 1+ (NEGATIVE); URINE MUCUS PRESENT (NOT PRESENT)
== END ==
LOC: LAB 11:22
PROVIDERS: Internal Medicine Medical Oncology
DX: Z01.89 Encounter for other specified special examinations (principal)

== ENCOUNTER → 2019-10-28 | Outpatient (CLI) | payer MEDICARE ==
[2019-10-21 16:19] VITALS: BP 111/76
[2019-10-28 10:43] LABS: EOS # 0.1 (0.04-0.40); HEMATOCRIT 43.7 % (37.0-47.0); HEMOGLOBIN 13.9 g/dL (12.5-16.0); LYMPH# 0.5 (1.50-4.00); MEAN CELL VOLUME 97 fl (78-100); MEAN CORPUSCULAR HEMOGLOBIN 31 pg (27-31); MEAN CORPUSCULAR HGB CONC 32 g/dL (33-37); MEAN PLATELET VOLUME 9.3 fl (7.4-10.4); MONO # 0.4 (0.20-0.80); NEU # 2.5 (1.40-6.50); PLATELET COUNT 128 K/mm3 (130-400); RED BLOOD COUNT 4.52 M/mm3 (4.10-5.30); RED CELL DISTRIBUTION WIDTH 17.1 % (11.5-14.5); WHITE BLOOD COUNT 3.4 K/mm3 (4.8-10.8)
[2019-10-28 10:46] LABS: ALBUMIN 3.5 g/dL (3.5-5.0)
[2019-10-28 10:47] LABS: POTASSIUM 4.1 mmol/L (3.5-5.1)
[2019-10-28 10:48] LABS: CALCIUM 9.2 mg/dL (8.3-10.5)
[2019-10-28 10:49] LABS: TOTAL PROTEIN 7.5 g/dL (6.4-8.3)
[2019-10-28 10:51] LABS: TOTAL BILIRUBIN 0.6 mg/dL (0.2-1.2)
[2019-10-28 21:19] LABS: URINE APPEARANCE CLOUDY; URINE BILIRUBIN NEGATIVE (NEGATIVE); URINE BLOOD NEGATIVE (NEGATIVE); URINE COLOR YELLOW; URINE GLUCOSE NEGATIVE (NEGATIVE); URINE KETONE NEGATIVE (NEGATIVE); URINE LEUKOCYTE ESTERASE TRACE (NEGATIVE); URINE NITRATE POSITIVE (NEGATIVE); URINE PROTEIN(semi-quant) NEGATIVE (NEGATIVE); URINE UROBILINOGEN 8 mg/dL (NORMAL)
[2019-10-28 21:20] LABS: URINE MUCUS PRESENT (NOT PRESENT)
== END ==
LOC: LAB 09:26
PROVIDERS: Internal Medicine
DX: C71.9 Malignant neoplasm of brain, unspecified (principal)

== ENCOUNTER → 2019-11-03 | Outpatient (CLI) | payer MEDICARE ==
[2019-10-21 16:19] VITALS: BP 111/76
[2019-11-03 11:15] LABS: ALBUMIN 3.4 g/dL (3.5-5.0)
[2019-11-03 11:16] LABS: CALCIUM 9.1 mg/dL (8.3-10.5)
[2019-11-03 11:17] LABS: TOTAL PROTEIN 7.2 g/dL (6.4-8.3)
[2019-11-03 11:19] LABS: TOTAL BILIRUBIN 0.6 mg/dL (0.2-1.2)
[2019-11-03 11:23] LABS: MAGNESIUM 2.42 mg/dL (1.60-2.60)
[2019-11-03 11:33] LABS: PH-URINE 6.5 (5.0 - 8.0); URINE APPEARANCE CLOUDY; URINE BILIRUBIN NEGATIVE (NEGATIVE); URINE BLOOD NEGATIVE (NEGATIVE); URINE COLOR YELLOW; URINE GLUCOSE NEGATIVE (NEGATIVE); URINE KETONE NEGATIVE (NEGATIVE); URINE LEUKOCYTE ESTERASE TRACE (NEGATIVE); URINE NITRATE POSITIVE (NEGATIVE); URINE PROTEIN(semi-quant) NEGATIVE (NEGATIVE); URINE UROBILINOGEN 12 mg/dL (NORMAL)
[2019-11-03 11:39] LABS: EOS # 0.1 (0.04-0.40); EOS % 1.8 % (1.0-5.0); HEMATOCRIT 43.3 % (37.0-47.0); HEMOGLOBIN 13.7 g/dL (12.5-16.0); LYMPH# 0.5 (1.50-4.00); MEAN CELL VOLUME 99 fl (78-100); MEAN CORPUSCULAR HEMOGLOBIN 31 pg (27-31); MEAN CORPUSCULAR HGB CONC 32 g/dL (33-37); MEAN PLATELET VOLUME 9.1 fl (7.4-10.4); MONO # 0.4 (0.20-0.80); NEU # 2.3 (1.40-6.50); PLATELET COUNT 109 K/mm3 (130-400); RED BLOOD COUNT 4.38 M/mm3 (4.10-5.30); RED CELL DISTRIBUTION WIDTH 16.9 % (11.5-14.5); WHITE BLOOD COUNT 3.3 K/mm3 (4.8-10.8)
== END ==
LOC: LAB 09:30
PROVIDERS: Internal Medicine Medical Oncology
DX: G40.909 Epilepsy, unspecified, not intractable, without status epilepticus (principal); K90.9 Intestinal malabsorption, unspecified; E61.1 Iron deficiency; E03.9 Hypothyroidism, unspecified